=== PATIENT | male | born 1975 | race Caucasian/White ===

== ENCOUNTER 2022-07-24 03:42 | Emergency (ER) | payer SELFPAY | END 2022-07-24 06:06 | disposition home or self-care (01) | LOC: ERS 03:42 | DX: E11.649 Type 2 diabetes mellitus with hypoglycemia without coma (principal); Z79.4 Long term (current) use of insulin; F17.210 Nicotine dependence, cigarettes, uncomplicated | CPT/HCPCS: 36416; 99283 ==